=== PATIENT | female | born 1955 | race African-American/Black ===

== ENCOUNTER 2018-01-24 13:17 | Emergency (ER) | payer MEDICARE, MEDICAID ==
--- NOTE | 2018-01-24 14:53 | CT ---
CT HEAD NONCONTRAST: History: Fall. Head injury. Comparison: 03-25-07 FINDINGS: There is no evidence of acute intracranial hemorrhage or infarct. Encephalomalacia in the left fronta l lobe and small amount of residual hyperdensity at the left basal ganglia remain from prior CVA. The re is no mass effect or shift of midline structures. Visualized paranasal sinuses remain well aerated . IMPRESSION: Chronic type findings. No acute intracranial abnormalities are demonstrated on noncontrast CT head. POS: JB
== END 2018-01-24 14:50 | disposition home or self-care (01) ==
LOC: NAV ERS 13:17
DX: Z04.3 Encounter for examination and observation following other accident (principal); R47.81 Slurred speech; E11.9 Type 2 diabetes mellitus without complications; I10 Essential (primary) hypertension; Z86.73 Personal history of transient ischemic attack (TIA), and cerebral infarction without residual deficits; Z87.891 Personal history of nicotine dependence; Z79.891 Long term (current) use of opiate analgesic; Z79.82 Long term (current) use of aspirin; Z79.899 Other long term (current) drug therapy; W01.0XXA Fall on same level from slipping, tripping and stumbling without subsequent striking against object, initial encounter
CPT/HCPCS: 70450

== ENCOUNTER 2019-03-10 14:33 | Emergency (ER) | payer MEDICARE, OTHER | END 2019-03-10 15:24 | disposition short-term general hospital (02) | LOC: NAV ERS 14:33 | DX: R51 Headache (principal); I10 Essential (primary) hypertension; E11.9 Type 2 diabetes mellitus without complications; F32.9 Major depressive disorder, single episode, unspecified; Z87.891 Personal history of nicotine dependence; Z86.73 Personal history of transient ischemic attack (TIA), and cerebral infarction without residual deficits; Z79.82 Long term (current) use of aspirin; Z79.891 Long term (current) use of opiate analgesic; Z79.899 Other long term (current) drug therapy | CPT/HCPCS: 36416; 99284 ==

== ENCOUNTER 2020-05-31 16:39 | Emergency (ER) | payer MEDICARE, MEDICAID, OTHER ==
--- NOTE | 2020-05-31 17:25 | RAD ---
Chest one view HISTORY: Cough. COMPARISON: 03/02/2018. FINDINGS: Cardiac silhouette is magnified by projection. Pulmonary vasculature is unremarkable. Mediastinum is midline with aortic calcification. No lobar consolidation or evidence of pneumothorax. IMPRESSION : Atherosclerosis. No active cardiopulmonary abnormalities are otherwise demonstrated.
[2020-05-31 17:59] LABS: ALT (SGPT) 22 U/L (8-55); AST (SGOT) 21 U/L (5-34); Alkaline Phosphatase 59 U/L (40-110); Anion Gap 14 mmol/L (10-20); BUN (Urea Nitrogen) 11 mg/dL (9.8-20.1); Bilirubin, Total 0.7 mg/dL (0.2-1.2); Calc. Creatinine Clearance 0 mL/min (70-130); Calcium 9.5 mg/dL (7.8-10.44); Carbon Dioxide 23 mmol/L (23-31); Chloride 104 mmol/L (98-107); Estimated GFR-MDRD 76; Glucose 85 mg/dL (80-115); Potassium 3.8 mmol/L (3.5-5.1); Sodium 137 mmol/L (136-145)
[2020-05-31 18:08] LABS: #Basophils 0.1 thou/uL (0.0-0.2); #Eosinphils 0.1 thou/uL (0.0-0.7); #Lymphocytes 0.4 thou/uL (1.20-3.40); #Monocytes 0.7 thou/uL (0.11-0.59); #Neutrophils 2.7 thou/uL (1.40-6.50); %Eosinophils 1.5 % (0.0-10.0); %Lymphocytes 10.3 % (21.0-51.0); %Monocytes 16.9 % (0.0-10.0); %Neutrophils 69.3 % (42.0-75.0); Differential Comment SCANNED; Hemoglobin 11.9 g/dL (12.0-16.0); Mean Corpuscular HGB CONC 29.8 g/dL (32.0-36.0); Mean Corpuscular Hemoglobin 27.5 pg (27.0-31.0); Mean Corpuscular Volume 92.2 fL (78.0-98.0); Mean Platelet Volume 13.6 fL (7.4-10.4); Platelet Count 69 thou/uL (130-400); Platelet Morphology Comment Appears Decreased; RBC Distribution Width 12.9 % (11.5-14.5); Red Blood Cell (RBC) Count 4.34 mill/uL (4.20-5.40); White Blood Cell (WBC) Count 3.8 thou/uL (4.8-10.8)
[2020-06-02 12:15] LABS: SARS-CoV-2 MS2 Positive; SARS-CoV-2 N Gene Positive; SARS-CoV-2 S Gene Positive; SARS-CoV-2 by NAA DETECTED (NotDetected); SARS-CoV-2 orf1ab Positive
== END 2020-05-31 18:25 | disposition home or self-care (01) ==
LOC: NAV ERS 16:39
DX: U07.1 COVID-19 (principal); E11.9 Type 2 diabetes mellitus without complications; I10 Essential (primary) hypertension; Z86.73 Personal history of transient ischemic attack (TIA), and cerebral infarction without residual deficits; F32.9 Major depressive disorder, single episode, unspecified; Z87.891 Personal history of nicotine dependence; Z79.899 Other long term (current) drug therapy; Z79.82 Long term (current) use of aspirin
CPT/HCPCS: 71045; 80053; 84484; 85025; 99283; U0003; 87635

== ENCOUNTER 2020-06-04 10:44 | Emergency (ER) | payer MEDICARE, OTHER ==
[2020-06-04] MEDS ORDERED: Ibuprofen 200 MG TAB ONE (12:13)
[2020-06-04] MEDS ORDERED: Ondansetron PF 4 MG/2 ML Vial ONE (12:13)
[2020-06-04 12:31] LABS: #Lymphocytes 0.8 thou/uL (1.20-3.40); #Monocytes 0.6 thou/uL (0.11-0.59); #Neutrophils 3.2 thou/uL (1.40-6.50); %Basophils 0.3 % (0.0-1.0); %Lymphocytes 16.6 % (21.0-51.0); %Monocytes 13.9 % (0.0-10.0); %Neutrophils 69.1 % (42.0-75.0); Hemoglobin 12.8 g/dL (12.0-16.0); Mean Corpuscular HGB CONC 30.3 g/dL (32.0-36.0); Mean Corpuscular Hemoglobin 27.6 pg (27.0-31.0); Mean Corpuscular Volume 91.1 fL (78.0-98.0); Mean Platelet Volume 15.9 fL (7.4-10.4); Platelet Count 87 thou/uL (130-400); RBC Distribution Width 12.4 % (11.5-14.5); Red Blood Cell (RBC) Count 4.65 mill/uL (4.20-5.40); White Blood Cell (WBC) Count 4.6 thou/uL (4.8-10.8)
[2020-06-04 12:51] LABS: ALT (SGPT) 29 U/L (8-55); AST (SGOT) 32 U/L (5-34); Albumin 3.8 g/dL (3.4-4.8); Alkaline Phosphatase 52 U/L (40-110); Anion Gap 20 mmol/L (10-20); BUN (Urea Nitrogen) 25 mg/dL (9.8-20.1); Bilirubin, Total 0.7 mg/dL (0.2-1.2); Calc. Creatinine Clearance 0 mL/min (70-130); Calcium 8.7 mg/dL (7.8-10.44); Carbon Dioxide 16 mmol/L (23-31); Chloride 102 mmol/L (98-107); Estimated GFR-MDRD 38; Globulin 3.3 g/dL (2.4-3.5); Glucose 147 mg/dL (80-115); Potassium 3.5 mmol/L (3.5-5.1); Protein, Total 7.1 g/dL (6.0-8.3); Sodium 134 mmol/L (136-145)
[2020-06-04] MEDS ORDERED: Sodium Chloride 0.9% 100 ML ONE (13:19)
== END 2020-06-04 15:00 | disposition home or self-care (01) ==
LOC: NAV ERS 10:44
DX: U07.1 COVID-19 (principal); N17.9 Acute kidney failure, unspecified; E86.0 Dehydration; E11.9 Type 2 diabetes mellitus without complications; I10 Essential (primary) hypertension; Z87.891 Personal history of nicotine dependence; Z79.899 Other long term (current) drug therapy
CPT/HCPCS: 80053; 85025; 96361; 96374; J2405; J3490

== ENCOUNTER 2020-10-06 18:51 | Emergency (ER) | payer MEDICARE, OTHER ==
--- NOTE | 2020-10-06 20:06 | RAD ---
CHEST ONE VIEW: History: Chest pain Comparison: 05-31-2020 FINDINGS: Heart size is within normal limits. The lungs are clear. No confluent pneumonia, overt edema, pleural effusion or other acute process. IMPRESSION: No significant acute process. POS: RRE
--- NOTE | 2020-10-06 20:07 | RAD ---
LEFT HUMERUS TWO VIEWS: History: Pain FINDINGS: No evidence of acute fracture or dislocation. AC joint arthrosis. IMPRESSION: No significant acute intrathoracic disease. POS: RRE
[2020-10-06 20:12] LABS: ALT (SGPT) 22 U/L (8-55); AST (SGOT) 25 U/L (5-34); Albumin 3.9 g/dL (3.4-4.8); Alkaline Phosphatase 79 U/L (40-110); Anion Gap 15 mmol/L (10-20); BUN (Urea Nitrogen) 34 mg/dL (9.8-20.1); Bilirubin, Total 0.6 mg/dL (0.2-1.2); Calc. Creatinine Clearance 0 mL/min (70-130); Calcium 8.8 mg/dL (7.8-10.44); Carbon Dioxide 20 mmol/L (23-31); Chloride 109 mmol/L (98-107); Estimated GFR-MDRD 71; Globulin 3.2 g/dL (2.4-3.5); Glucose 113 mg/dL (80-115); Potassium 4.3 mmol/L (3.5-5.1); Protein, Total 7.1 g/dL (6.0-8.3); Sodium 140 mmol/L (136-145)
[2020-10-06 20:14] LABS: #Eosinphils 0.1 thou/uL (0.0-0.7); #Lymphocytes 1.1 thou/uL (1.20-3.40); #Monocytes 0.5 thou/uL (0.11-0.59); #Neutrophils 2.4 thou/uL (1.40-6.50); %Basophils 0.5 % (0.0-1.0); %Eosinophils 1.8 % (0.0-10.0); %Lymphocytes 26.8 % (21.0-51.0); %Monocytes 12.8 % (0.0-10.0); %Neutrophils 58.1 % (42.0-75.0); Hemoglobin 11.7 g/dL (12.0-16.0); Mean Corpuscular HGB CONC 31.2 g/dL (32.0-36.0); Mean Corpuscular Hemoglobin 28.6 pg (27.0-31.0); Mean Corpuscular Volume 91.6 fL (78.0-98.0); Mean Platelet Volume 13.9 fL (7.4-10.4); Platelet Count 77 thou/uL (130-400); RBC Distribution Width 13.6 % (11.5-14.5); Red Blood Cell (RBC) Count 4.09 mill/uL (4.20-5.40); White Blood Cell (WBC) Count 4.2 thou/uL (4.8-10.8)
[2020-10-06] MEDS ORDERED: Morphine 2 MG/ML SYRINGE ONE (21:47)
[2020-10-06] MEDS ORDERED: Ondansetron PF 4 MG/2 ML Vial ONE (21:47)
== END 2020-10-06 22:38 | disposition short-term general hospital (02) ==
LOC: NAV ERS 18:51
DX: R07.89 Other chest pain (principal); M25.512 Pain in left shoulder; E11.9 Type 2 diabetes mellitus without complications; I10 Essential (primary) hypertension; Z86.73 Personal history of transient ischemic attack (TIA), and cerebral infarction without residual deficits; F32.9 Major depressive disorder, single episode, unspecified; Z87.891 Personal history of nicotine dependence
CPT/HCPCS: 71045; 80053; 84484; 85025; 93005; 94760; 96374; 96375; J2270; J2405

== ENCOUNTER 2021-01-29 16:42 | Emergency (ER) | payer MEDICARE, OTHER | END 2021-01-29 17:50 | disposition short-term general hospital (02) | LOC: NAV ERS 16:42 | DX: M79.661 Pain in right lower leg (principal); M79.651 Pain in right thigh; R53.1 Weakness; Z86.73 Personal history of transient ischemic attack (TIA), and cerebral infarction without residual deficits; E11.9 Type 2 diabetes mellitus without complications; I10 Essential (primary) hypertension; Z87.891 Personal history of nicotine dependence | CPT/HCPCS: 99285 ==

== ENCOUNTER 2022-09-27 16:49 | Emergency (ER) | payer OTHER ==
[2022-09-27 17:39] LABS: #Eosinphils 0.1 thou/uL (0.0-0.7); #Lymphocytes 0.6 thou/uL (1.20-3.40); #Monocytes 0.2 thou/uL (0.11-0.59); #Neutrophils 2.1 thou/uL (1.40-6.50); %Basophils 0.4 % (0.0-1.0); %Eosinophils 1.9 % (0.0-10.0); %Lymphocytes 19.6 % (21.0-51.0); Hemoglobin 10.6 g/dL (12.0-16.0); Mean Corpuscular HGB CONC 31.6 g/dL (32.0-36.0); Mean Corpuscular Hemoglobin 28.7 pg (27.0-31.0); Mean Platelet Volume 11.5 fL (7.4-10.4); Platelet Count 99 10x3/uL (130-400); RBC Distribution Width 16.4 % (11.5-14.5)
[2022-09-27 17:55] LABS: ALT (SGPT) 9 U/L (8-55); AST (SGOT) 17 U/L (5-34); Albumin 3.1 g/dL (3.4-4.8); Alkaline Phosphatase 50 U/L (40-110); Anion Gap 16 mmol/L (10-20); BUN (Urea Nitrogen) 9 mg/dL (9.8-20.1); Bilirubin, Total 0.7 mg/dL (0.2-1.2); Calc. Creatinine Clearance 0 mL/min (70-130); Calcium 8.9 mg/dL (7.8-10.44); Carbon Dioxide 23 mmol/L (23-31); Chloride 107 mmol/L (98-107); Estimated GFR 76; Globulin 4.3 g/dL (2.4-3.5); Glucose 113 mg/dL (80-115); Protein, Total 7.4 g/dL (5.8-8.1); Sodium 143 mmol/L (136-145)
[2022-09-27 17:59] LABS: Potassium 2.5 mmol/L (3.5-5.1)
[2022-09-27] MEDS ORDERED: Potassium Chloride 20 MEQ TAB ONE (18:29)
[2022-09-27] MEDS ORDERED: Sodium Chloride 0.9% 1,000 ML ONE (18:29)
== END 2022-09-27 18:59 | disposition home or self-care (01) ==
LOC: NAV ERS 16:49
DX: K52.9 Noninfective gastroenteritis and colitis, unspecified (principal); D64.9 Anemia, unspecified; E87.6 Hypokalemia; D69.6 Thrombocytopenia, unspecified; I10 Essential (primary) hypertension; E11.9 Type 2 diabetes mellitus without complications; Z87.891 Personal history of nicotine dependence
CPT/HCPCS: 80053; 83605; 83630; 85025; 87324; 87449; 99284; J7050